=== PATIENT | female | born 1980 | race Caucasian/White ===

== ENCOUNTER 2020-05-04 09:39 | Outpatient (CLI) | payer OTHER, SELFPAY ==
--- NOTE | ~2020-05-04 | US_ITS ---
EXAMINATION: US OB <=14 wk fetus w TV DATE: 05/04/2020 10:59 INDICATION: Others specified related conditions, first trimester TECHNIQUE: Real-time pelvic transabdominal and transvaginal ultrasound was performed. COMPARISON: None. FINDINGS: The uterus measures 10.3 x 6.8 x 4.9 cm. There is an intrauterine gestational sac. A yolk sac is identified. The pole is not yet visualized, likely due to early gestation. The mean gest ational sac diameter measures 8 mm , which correlates with an estimated gestational age of 5 weeks an d 3 day(s) (+/-) 3 day(s). The right ovary measures 3.2 x 2.4 x 2.6 cm. The left ovary measures 2.2 x 2.0 x 1.1 cm. There is nor mal vascular flow in the ovaries. There is no free fluid in the pelvis. IMPRESSION: 1. Intrauterine gestational sac with an estimated gestational age of 5 weeks and 3 day(s) (+/-) 3 day (s) and an estimated delivery date of 01/01/2021 based on mean sac diameter. 2. pole not yet visualized, likely due to early . Reviewed, dictated and finalized at location B. IMPRESSION: 1. Intrauterine gestational sac with an estimated gestational age of 5 weeks an d 3 day(s) (+/-) 3 day(s) and an estimated delivery date of 01/01/2021 based on m tam sac diameter. 2. pole not yet visualized, likely due to early .
== END 2020-05-04 09:40 | disposition home or self-care (01) ==
PROVIDERS: PCP Family Medicine; Visit Provider Obstetrics & Gynecology
DX: Z34.90 Encounter for supervision of normal pregnancy, unspecified, unspecified trimester (principal); O26.899 Other specified pregnancy related conditions, unspecified trimester; Z3A.00 Weeks of gestation of pregnancy not specified
CPT/HCPCS: 36415; 76801; 76817; 84144; 84702

== ENCOUNTER 2020-05-09 10:09 | Outpatient (CLI) | payer OTHER, SELFPAY ==
--- NOTE | ~2020-05-09 | US_ITS ---
EXAMINATION: US OB <=14 wk fetus w TV DATE: 05/09/2020 11:22 INDICATION: survey TECHNIQUE: Real-time transabdominal and transvaginal obstetric ultrasound. FINDINGS: No prior studies for comparison. The uterus measures 11.2 x 6.8 x 5.1 cm. There is an intrauterine gestational sac, with pole id entified. The crown rump length measures 0.28 cm, which correlates with a estimated gestational age of 5 weeks 6 days. heart tones are identified measuring 91 bpm. 2.2 cm corpus luteal cyst of the right ovary. Left ovary is unremarkable. IMPRESSION: 1. SL IUP with an EGA of 5 weeks, 6 days (EDC by current ultrasound of 01/03/2021). Reviewed, dictated and finalized at location A. IMPRESSION: 1. SL IUP with an EGA of 5 weeks, 6 days (EDC by current ultrasound of ).
== END 2020-05-09 10:10 | disposition home or self-care (01) ==
PROVIDERS: PCP Family Medicine; Visit Provider Obstetrics & Gynecology
DX: Z34.90 Encounter for supervision of normal pregnancy, unspecified, unspecified trimester (principal)
CPT/HCPCS: 76801; 76817

== ENCOUNTER 2020-05-18 16:55 | Outpatient (CLI) | payer OTHER, SELFPAY ==
--- NOTE | ~2020-05-18 | US_ITS ---
EXAMINATION: US OB <=14 wk fetus w TV DATE: 05/18/2020 17:39 INDICATION: Threatened , first trimester TECHNIQUE: Real-time pelvic transabdominal and transvaginal ultrasound was performed. COMPARISON: 05/09/2020 FINDINGS: The uterus measures 10.3 x 5.0 x 7.1 cm. There is an intrauterine gestational sac. A yolk sac is no longer identified. There is a questionable 5 mm pole. No associated cardiac act ivity is identified. The ovaries are not visualized however no adnexal abnormality is seen. There is no free fluid in the pelvis. IMPRESSION: 1. Possible pole without detectable heart tones and interval involution of a yolk sac, mccormack spicious for failure. Reviewed, dictated and finalized at location A. IMPRESSION: 1. Possible pole without detectable heart tones and interval involu tion of a yolk sac, suspicious for failure.
== END 2020-05-18 16:56 | disposition home or self-care (01) ==
PROVIDERS: PCP Family Medicine; Visit Provider Obstetrics & Gynecology
DX: O20.0 Threatened abortion (principal); Z3A.00 Weeks of gestation of pregnancy not specified
CPT/HCPCS: 76801; 76817

== ENCOUNTER 2020-06-30 09:22 | Outpatient (CLI) | payer OTHER, SELFPAY ==
--- NOTE | ~2020-06-30 | XR_ITS ---
EXAMINATION: XR hysterosalpingogram INDICATION: Recurrent loss TECHNIQUE: Hysterosalpingogram was performed by Dr. Fadi Almanza MD with fluoroscopic guidance. I was present to obtain fluoroscopic images. Fluoroscopy exposure time was 1.4 minutes. The DAP for this procedure was 6.546 Gycm2. FINDINGS: Sandblaster Paint Sprayer image demonstrates an unremarkable pelvis. Fluoroscopic images demonstrate a normal appearing endometrial cavity which has been cannulated. Upon injection of contrast, both fallopian t ubes opacify and are normal in appearance. There is free spillage bilaterally. Uterus is without nikole dence of synechia. A septate uterus is questioned. IMPRESSION: 1. Patent fallopian tubes. 2. Possible septate uterus. Reviewed, dictated and finalized at location A. 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
[2020-06-30 10:35] LABS: Beta HCG Quantitative < 2.39 mIU/ML
== END 2020-06-30 09:23 | disposition home or self-care (01) ==
PROVIDERS: PCP Family Medicine; Visit Provider Obstetrics & Gynecology
DX: N96 Recurrent pregnancy loss (principal)
CPT/HCPCS: 36415; 58340; 74740; 84702; Q9966

== ENCOUNTER 2020-08-03 06:57 | Outpatient (NON) | payer OTHER, SELFPAY ==
[2020-08-03 18:51] LABS: SARS-CoV-2 RNA PCR Negative
== END 2020-08-03 06:58 ==
LOC: ANHCOVIDDT 07:00
PROVIDERS: Physician Assistant; PCP Family Medicine; Visit Provider Family Medicine
DX: R06.02 Shortness of breath (principal); Z20.828 Contact with and (suspected) exposure to other viral communicable diseases
CPT/HCPCS: 87635; C9803; U0003

== ENCOUNTER 2021-04-15 12:21 | Emergency (ER) | payer OTHER, SELFPAY ==
--- NOTE | 2021-04-15 12:23 | ED.SKABFB ---
HPI - Skin/Abscess/Foreign Bdy General Chief complaint: Skin/Abscess/Foreign Body Stated complaint: rash Time Seen by Provider: 04/15/21 12:23 Source: patient and RN notes reviewed History of Present Illness HPI narrative: Patient is a 40-year-old female who presents the urgent care with complaints of a itchy rash to bilateral lower legs and right forearm. Patient states is been there for approximately 2 weeks and she has not used anything [id number] for her itching. Patient states that she believes she is 6 weeks and was seen for an ultrasound today due to spotting. Patient states she was not taking anything and was not prescribed anything for the rash considering her . Patient states that this would be her third miscarriage if she is in fact miscarrying at this time. Patient is tearful and anxious due to her previous appointment prior to urgent care. Patient states that the rash started after she was outside a lot and at the [place]. States that no one else in the home has the rash. No other acute complaints. Patient aware of the plan of care Some parts of this dictation were generated by voice recognition software and may contain typographical and/or grammatical inaccuracies. Related Data Allergies Allergy/AdvReac Type Severity Reaction Status Date / Time neomycin Allergy Mild RASH Verified 02/04/21 08:01 bacitracin Allergy Unknown Rash Verified 02/04/21 08:01 polymyxin B Allergy Unknown Rash Verified 02/04/21 08:01 Review of Systems Review of Systems: CONSTITUTIONAL: Denies fever, chills, or sweats. EYES: Denies visual changes, redness, or discharge. ENT: Denies rhinorrhea, congestion, sore throat, or otalgia. CARDIOVASCULAR: Denies chest pain, palpitations, or edema. RESPIRATORY: Denies cough or dyspnea. GASTROINTESTINAL: Denies abdominal pain, nausea, vomiting, or diarrhea. GENITOURINARY: Denies dysuria or hematuria. SKIN: Reports of an itchy rash to bilateral lower legs and right forearm MUSCULOSKELETAL: Denies back pain, joint pain, or myalgia. NEUROLOGIC: Denies headache, numbness, or weakness. All other systems reviewed are negative, except as documented in HPI. [facility] Past Medical History Medical History (Updated 04/15/21 @ 12:43 by CARLI Bailey) Attention-deficit hyperactivity disorder, predominantly inattentive type Surgical History Surgical History [place] teeth extracted Family History Family History Mother Diabetes mellitus Social History Social History (Updated 02/04/21 @ 08:02 by Alice Waggoner CMA) Years smoked: 8 Smoking status: Former smoker Tobacco type: cigarettes Second hand tobacco smoke exposure: No Smoking end date: 08/27/04 Alcohol intake: never Substance use: never Substance use type: does not use Gender identity (if verbalized by the patient): Female Comments At the time of my signature, I reviewed and agree with the nursing past medical, surgical, social, and family history. There is no relevant family history pertinent to the patient complaint. Exam Narrative: GENERAL: This is a well-nourished, well-developed patient, tearful HEAD: normocephalic, atraumatic. EYES: PERRL. Sclera clear/white. Vision is grossly intact. EARS: External ears normal NOSE: External nose normal with no obvious nasal discharge, nares without redness, no rhinorrhea. THROAT: Mucous membranes moist NECK: Neck supple CARDIOVASCULAR: Regular rate and rhythm without murmurs, gallops, or rubs. SKIN: NEURO: awake, alert, and oriented to person, place and time. There were no obvious focal neurologic abnormalities. EXTREMITIES: No clubbing, cyanosis, or edema. Course Vital Signs Vital signs: Vital Signs Temperature 97.9 F 04/15/21 12:29 Pulse Rate 90 04/15/21 12:29 Respiratory Rate 16 04/15/21 12:29 Blood Pressure 121/87 04/15/21 12:29
[2021-04-15 12:29] VITALS: BP 121/87; PULSE 90; RESP 16; TEMP 36.6; O2SAT 98
== END 2021-04-15 12:49 | disposition home or self-care (01) ==
PROVIDERS: Emergency Provider Nurse Practitioner Family; PCP Family Medicine
DX: B88.0 Other acariasis (principal); Z87.891 Personal history of nicotine dependence; F90.0 Attention-deficit hyperactivity disorder, predominantly inattentive type
CPT/HCPCS: 99211; G0463

== ENCOUNTER 2021-04-15 14:39 | Emergency (ER) | payer OTHER, SELFPAY ==
[2021-04-15 15:12] VITALS: BP 119/82; PULSE 99; RESP 16; TEMP 36.5; O2SAT 96
[2021-04-15 15:38] LABS: Basophils Absolute Auto 0.1 K/mm3 (0.0-0.1); Basophils Percent Auto 0.5 % (0.2-1.2); Eosinophils Absolute Auto 0.2 K/mm3 (0-0.3); Eosinophils Percent Auto 1.6 % (0-4.4); Hematocrit 44.7 % (37.0-47.0); Hemoglobin 14.5 g/dL (12.0-15.0); Immature Granulocyte Absolute 0.05 K/mm3 (0.00-0.031); Immature Granulocyte Percent A 0.4 % (0-0.5); Lymphocytes Absolute Auto 2.69 K/mm3 (0.9-3.2); Lymphocytes Percent Auto 21.5 % (18.3-44.2); Mean Corpuscular HGB Conc 32.4 g/dl (32-36); Mean Corpuscular Hemoglobin 29.5 pg (26-34); Mean Corpuscular Volume 90.9 fl (80-100); Mean Platelet Volume 8.5 fl (7.4-10.4); Monocytes Absolute Auto 1.1 K/mm3 (0.1-0.6); Monocytes Percent Auto 8.6 % (2.6-8.5); Neutrophils Absolute Auto 8.4 K/mm3 (1.3-6.7); Neutrophils Percent Auto 67.4 % (45.5-73.1); Platelet Count Result 407 k/mm3 (150-375); Red Blood Count 4.92 M/mm3 (4.2-5.4); Red Cell Distribution Width 13.6 % (11.5-14.5); White Blood Count 12.5 K/mm3 (4.5-10.0)
[2021-04-15 18:00] VITALS: BP 144/77; PULSE 77; RESP 20; O2SAT 100
--- NOTE | 2021-04-15 18:49 | ED.PREGNANCY ---
HPI - General Chief complaint: Vaginal Bleeding Stated complaint: vaginal bleeding/ lmp 02/24 Time Seen by Provider: 04/15/21 18:02 Source: patient Mode of arrival: ambulatory Limitations: no limitations History of Present Illness HPI Narrative: This is a 40-year-old G3, P0, about 7 weeks by LMP, that presents to the emergency department for vaginal bleeding. Reports this has been ongoing for the last 2 days. It worsened today with worsening pelvic cramping. She did see her high-risk doctor this morning and had a ultrasound that showed an intrauterine . She was measuring about 5 weeks, there was no heart tones. Denies fevers. Related Data Home Medications Medication Instructions Recorded Confirmed No Home Medications 04/15/21 04/15/21 Allergies Allergy/AdvReac Type Severity Reaction Status Date / Time neomycin Allergy Mild RASH Verified 04/15/21 17:57 bacitracin Allergy Unknown Rash Verified 04/15/21 17:57 polymyxin B Allergy Unknown Rash Verified 04/15/21 17:57 Review of Systems Review of Systems: CONSTITUTIONAL: Denies fever GASTROINTESTINAL: Reports pelvic cramping GENITOURINARY: Reports vaginal bleeding All systems reviewed & are unremarkable except as noted in HPI and below PMFSH Past Medical History Medical History (Updated 04/15/21 @ 18:54 by Melinda Taylor PA-C) Attention-deficit hyperactivity disorder, predominantly inattentive type Surgical History Surgical History [place] teeth extracted Family History Family History Mother Diabetes mellitus Social History Social History (Updated 02/04/21 @ 08:02 by Alice Waggoner CMA) Years smoked: 8 Smoking status: Former smoker Tobacco type: cigarettes Second hand tobacco smoke exposure: No Smoking end date: 08/27/04 Alcohol intake: never Substance use: never Substance use type: does not use Gender identity (if verbalized by the patient): Female Exam Narrative: GENERAL: Well-appearing, well-nourished, and in no acute distress. HEAD: Normocephalic, atraumatic. EYES: EOMI. CHEST: Clear to auscultation. No respiratory distress. No wheezes rales or rhonchi HEART: Regular rate and rhythm. No murmur heard. Normal peripheral pulses. ABDOMEN: Soft, nontender, nondistended, normal active bowel sounds. EXTREMITIES: Normal range of motion. No edema. SKIN: Warm, dry, no rash. NEURO: No focal deficits. Alert and oriented x3. PSYCH: Normal mood and affect PELVIC: Normal external genitalia. Small to moderate amount of dark red blood in the vaginal vault Course Consultations Consultation #1: Spoke with Dr. Almanza about patient and work-up. Patient will be given prescription for quantitative beta-hCG in 48 hours and is to follow-up in clinic. Date: 04/15/21 Time: 18:54 Vital Signs Vital signs: Vital Signs Temperature 97.7 F 04/15/21 15:12 Pulse Rate 99 04/15/21 15:12 Respiratory Rate 16 04/15/21 15:12 Blood Pressure 119/82 04/15/21 15:12 Pulse Oximetry 96 04/15/21 15:12 Temperature 97.7 F 04/15/21 15:12 Pulse Rate 77 04/15/21 18:00 Respiratory Rate 20 04/15/21 18:00 Blood Pressure 144/77 H 04/15/21 18:00 Pulse Oximetry 100 04/15/21 18:00 MDM - OB/Uterine Contractions MDM Narrative Medical decision making narrative: Patient presents to the emergency department for vaginal bleeding. 7 weeks by LMP. She did have an ultrasound today which showed an intrauterine with her high risk doctor. Apparently she was measuring 5 weeks, there was no heart tones. She does have a small to moderate amount of dark red blood in the vaginal vault. Her quantitative beta-hCG is 296. Patient is O+. Spoke with Dr. Almanza about patient and work-up. Patient will be given prescription for quantitative beta-hCG in 48 hours and is to follow-up in clinic. Patient is
[2021-04-15] MEDS: ACETAMINOPHEN 500 MG TABLET 1000 MG PO (19:04)
[2021-04-15 19:12] VITALS: BP 142/72; PULSE 65; RESP 16; O2SAT 96
[2021-04-15 19:16] VITALS: TEMP 36.5
== END 2021-04-15 19:17 | disposition home or self-care (01) ==
LOC: ANHED 19:10
PROVIDERS: Emergency Medicine; Emergency Provider Emergency Medicine; PCP Family Medicine
DX: O20.0 Threatened abortion (principal); Z87.891 Personal history of nicotine dependence; Z3A.01 Less than 8 weeks gestation of pregnancy
CPT/HCPCS: 36415; 84702; 85025; 85461; 99211; 99284; A9270; G0463

== ENCOUNTER 2021-04-18 07:00 | Outpatient (CLI) | payer OTHER, SELFPAY ==
[2021-04-18 08:07] LABS: Beta HCG Quantitative 21.73 mIU/ML
== END 2021-04-18 07:01 | disposition home or self-care (01) ==
PROVIDERS: PCP Family Medicine; Referring Provider Obstetrics & Gynecology; Visit Provider Physician Assistant
DX: O20.0 Threatened abortion (principal); Z3A.00 Weeks of gestation of pregnancy not specified
CPT/HCPCS: 36415; 84702

== ENCOUNTER → 2022-05-16 09:06 | Outpatient (CLI) | payer OTHER, SELFPAY ==
--- NOTE | ~2022-05-16 | XR_ITS ---
XR lumbar spine 2-3V DATE: 05/16/2022 09:20 INDICATION: Low back pain radiating down both legs for 2 months TECHNIQUE: AP, lateral, coned lateral lumbosacral views COMPARISON: None FINDINGS: There is mild degenerative disc disease at L1-2 and L2-3. No fracture or bone destruction or spondylolisthesis. The lumbar pedicles are intact. The sacrum join ts appear normal. IMPRESSION: Mild degenerative disc disease at L1-2 and L2-3 Reviewed, dictated and finalized at location B.
== END ==
PROVIDERS: PCP Family Medicine; Visit Provider Physician Assistant
DX: M51.36 Other intervertebral disc degeneration, lumbar region (principal)
CPT/HCPCS: 72100

== ENCOUNTER → 2022-06-27 10:03 | Outpatient (CLI) | payer OTHER, SELFPAY ==
--- NOTE | ~2022-06-27 | XR_ITS ---
EXAMINATION: XR chest 2V Exam Date/Time: 06/27/2022 10:32 CDT HISTORY: DIZZINESS SOB WHEEZING FOR 2 MONTHS Comparison: None available. RESULT: Lines, tubes, and devices: None. Lungs and pleura: Clear. Cardiomediastinal silhouette: Unremarkable. Other: No acute osseous or upper abdominal finding. IMPRESSION: No acute cardiopulmonary process. Reviewed, dictated and finalized at location K.
== END ==
PROVIDERS: PCP Family Medicine; Visit Provider Physician Assistant
DX: R06.02 Shortness of breath (principal)
CPT/HCPCS: 71046

== ENCOUNTER 2022-10-09 08:31 | Outpatient (CLI) | payer OTHER, SELFPAY ==
--- NOTE | ~2022-10-09 | NM_ITS ---
EXAMINATION: NM quinn stress w perfusion DATE: 10/09/2022 10:54 INDICATION: Other forms of dyspnea. TECHNIQUE: Rest images were obtained following intravenous administration of 11 mCi Tc99m tetrofosmin (Myoview). The patient was infused intravenously with Lexiscan (regadenoson). Then, 35 mCi Tc99m tet rofosmin (Myoview) was administered intravenously, and supine and prone stress images were obtained. Data was reconstructed into short axis and horizontal and vertical long axis SPECT images. Gated SPEC T images were also obtained. COMPARISON: None. FINDINGS: There is no definite reversible or fixed perfusion abnormality to suggest ischemia or infar ction. There is no segmental wall motion abnormality. Left ventricular ejection fraction measures > 70%. IMPRESSION: 1. No definite ischemia or infarct. 2. Normal left ventricular ejection fraction measuring >70%. Reviewed, dictated and finalized at location A. 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
--- NOTE | 2022-10-09 08:50 | EST_ITS ---
Patient Info Name: Kasie Chamorro Age: 42 years : 1980 Gender: Female Ht: 62 in Wt: 240 lbs BSA: 2.25 m2 HR: 91 bpm BP: 102 / 80 mmHg Heart Rhythm: Sinus Rhythm Exam Date: 10/09/2022 9:17 AM Exam Location: [facility] ([facility] Stress Patient Status: Outpatient Admit Date: 10/09/2022 Staff Ordering Physician: Mary Rudd PA-C Attending Provider: Mary Rudd PA-C Exercise Technologist: Chata Hughes CT Exercise Physician: Ishmael Ferris DO Exam Type: CA stress quinn w NM Study Info Indications R06.09 - Other forms of dyspnea A regadenoson stress test was performed. Summary 1. 1. Negative lexiscan stress test for ischemic ST changes by ECG criteria. 2. 2. Stable hemodynamics throughout the test. 3. 3. Nuclear scan to follow and will be reported separately. Please correlate with it. 4. 4. Patient informed of the above results. Protocol: Lexiscan Stress ECG Details Stage: REST Duration (min): 3 min : 45 sec HR (bpm): 91 SBP (mmHg): 102 DBP (mmHg): 80 Stage: REST Duration (min): 13 min : 51 sec HR (bpm): 94 SBP (mmHg): 102 DBP (mmHg): 80 Stage: STAGE 1 Duration (min): 1 min : 0 sec HR (bpm): 115 SBP (mmHg): 121 DBP (mmHg): 51 Stage: RECOVERY Duration (min): 1 min : 0 sec HR (bpm): 118 SBP (mmHg): 121 DBP (mmHg): 51 Stage: RECOVERY Duration (min): 2 min : 0 sec HR (bpm): 115 SBP (mmHg): 121 DBP (mmHg): 51 Stage: RECOVERY Duration (min): 2 min : 50 sec HR (bpm): 111 SBP (mmHg): 112 DBP (mmHg): 58 Rest HR: 94 bpm Peak HR: 119 bpm Rest Sys BP: 102 mmHg Peak Sys BP: 121 mmHg Max Pred HR: 178 bpm % Max Pred HR: 67 % Target HR: 151 bpm Max RPP: 14,399 bpm*mmHg Termination Reason: Completed protocol Cardiac Symptoms: Shortness of breath Total Time: 1 min : 0 sec Rest [place] BP: 80 mmHg Peak [place] BP: 51 mmHg Total Dose: 0.4 mg Resting ECG Sinus rhythm. Stress ECG No ST changes. Arrhythmias None. Report Signatures
== END 2022-10-09 08:32 | disposition home or self-care (01) ==
PROVIDERS: PCP Family Medicine; Visit Provider Physician Assistant
DX: R06.09 Other forms of dyspnea (principal); E66.9 Obesity, unspecified
CPT/HCPCS: 78452; 93017; A9502; J2785

== ENCOUNTER 2022-11-13 09:28 | Outpatient (CLI) | payer OTHER, SELFPAY ==
--- NOTE | ~2022-11-13 | US_ITS ---
Limited Abdominal Sonogram: Real-time sonographic imaging of the right upper quadrant was performed. Clinical History: Abnormal liver enzymes Findings: The liver appears mildly echogenic, with no evidence of mass lesion or bile duct dilatatio n. Main portal vein demonstrates normal direction of flow. The gallbladder is well distended, and mraia g ears normal with no evidence of gallstone or wall thickening. The common bile duct measures 4 mm. Th e visualized pancreas, aorta, and IVC are unremarkable. Impression: Probable fatty infiltration of liver. Reviewed, dictated and finalized at location M. Impression: Probable fatty infiltration of liver.
--- NOTE | 2022-11-13 17:18 | WPDPFTINT ---
PFT Procedure Performed PFT Procedure Performed Spirometry with Pre/Post Bronchodilator Plethysmography (Lung Vol) Diffusing Cap (DLCO) Flow Vol Loop PFT Interpretation This is a pulmonary function test with pre and post-bronchodilator spirometry, plethysmography and diffusing capacity. The test was performed and results interpreted in accordance with the 2019 and 2005 ATS/ERS Task Force guidelines respectively using the Global Lung Function Initiative-2012 reference equations. Patient demonstrated good effort and cooperation. Reproducibility criteria were met. The quality of the pre bronchodilator spirometry maneuver was Grade A and post bronchodilator spirometry maneuver was Grade A. Findings: Spirometry: The contour the inspiratory and expiratory flow tracing are normal. The pre bronchodilator FVC is 2.65 L, 79% predicted. The pre bronchodilator FEV1 is 2.17 L, 79% predicted. The pre bronchodilator FEV1: FVC ratio was 82%. The post bronchodilator FVC is 2.70 L, representing a 2% increase. The post bronchodilator FEV1 is 2.24 L, representing a 3% increase. The post bronchodilator FEV1: FVC ratio was 83%. Plethysmography: The total lung capacity is 3.77 L, 80% predicted. The functional residual capacity is 1.34 L, 52% predicted. The residual volume is 1.02 L, 68% predicted. Diffusion capacity: The diffusing capacity unadjusted for hemoglobin and carboxyhemoglobin is 17.5, 77% predicted. The diffusing capacity adjusted for alveolar volume is 5.48, 114% predicted. Impression: The spirometry is normal without evidence of an obstructive abnormality. There is no significant improvement after inhaling a single dose of albuterol. The total lung capacity and Residual volume are normal with a decreased functional residual capacity. This is an abnormal but nonspecific lung volume pattern. The diffusing capacity is normal. There are no prior studies for comparison
== END 2022-11-13 09:29 | disposition home or self-care (01) ==
PROVIDERS: PCP Family Medicine; Visit Provider Physician Assistant
DX: R06.09 Other forms of dyspnea (principal); R74.01 Elevation of levels of liver transaminase levels; R74.8 Abnormal levels of other serum enzymes
CPT/HCPCS: 76705; 94060; 94726; 94729

== ENCOUNTER 2024-03-19 08:45 | Outpatient (CLI) | payer OTHER, SELFPAY ==
--- NOTE | ~2024-03-19 | US_ITS ---
US abdomen limited INDICATION: Elevated liver function tests PROCEDURE: Realtime right upper abdominal ultrasound. COMPARISON: No prior studies for comparison. FINDINGS: The pancreas is normal without focal mass or pancreatic ductal dilation. Liver echotexture is increased, consistent with fatty infiltration. There is normal directional flow in the portal ve in. The gallbladder is normal without stones, gallbladder wall thickening or pericholecystic fluid. Comm on bile duct measures 3 mm. No sonographic Mcclendon's sign. IMPRESSION: 1: Fatty infiltration of the liver. Reviewed, dictated and finalized at location B.
== END 2024-03-19 08:46 | disposition home or self-care (01) ==
LOC: CHSIMG 08:46
PROVIDERS: PCP Family Medicine; Visit Provider Physician Assistant
DX: R79.89 Other specified abnormal findings of blood chemistry (principal); K76.0 Fatty (change of) liver, not elsewhere classified
CPT/HCPCS: 76705

== ENCOUNTER 2024-06-13 07:57 | Outpatient (CLI) | payer OTHER, SELFPAY ==
[2024-06-13 08:24] LABS: Hemoglobin A1C 5.2 % (<5.7)
[2024-06-13 09:07] LABS: Thyroid Stimulating Hormone 1.15 uIU/mL (0.36-3.74)
[2024-06-15 02:18] LABS: Alpha-1-Antitrypsin, QN 176 mg/dL (83-199)
[2024-06-15 02:28] LABS: LH 8.8 mIU/mL; Progesterone <0.5 ng/mL
[2024-06-16 13:24] LABS: Insulin Level Total 25.3 uIU/mL
== END 2024-06-13 07:58 | disposition home or self-care (01) ==
LOC: CHSLAB 07:59
PROVIDERS: Nurse Practitioner Family; PCP Physician Assistant; Visit Provider Obstetrics & Gynecology
DX: N92.6 Irregular menstruation, unspecified (principal)
CPT/HCPCS: 36415; 82103; 83001; 83002; 83036; 83525; 84144; 84443

== ENCOUNTER 2024-11-05 08:04 | Outpatient (CLI) | payer OTHER, SELFPAY ==
--- NOTE | ~2024-11-05 | US_ITS ---
EXAMINATION: US pelvic complete w TV DATE: 11/05/2024 08:35 INDICATION: Abnormal uterine and vaginal bleeding, unspecified. TECHNIQUE: Multiple transabdominal and transvaginal sonographic images of the pelvis were obtained. COMPARISON: Ultrasound 07/01/2024 FINDINGS: TRANSABDOMINAL ULTRASOUND: The uterus measures 8.6 x 5.8 x 4.6 cm. There is no free fluid in the pelvis. TRANSVAGINAL ULTRASOUND: The endometrial complex measures 2.2 cm in thickness. There is a nabothian cyst in the cervix. The ri ght ovary measures 2.8 x 2.2 x 2.4 cm. The left ovary measures 3.3 x 2.4 x 2.0 cm. There is normal va scular flow in the ovaries. IMPRESSION: 1. Thickened endometrial complex, which may be seen with endometrial hyperplasia or polyp. Reviewed, dictated and finalized at location B. IMPRESSION: 1. Thickened endometrial complex, which may be seen with endometrial hyperplasi a or polyp.
--- OUTSIDE RECORDS SUMMARY | 2024-11-05 08:11 | XMS_ITS | Continuity of Care Document ---
Author Organization [facility] Address [address] [facility] [place] [address] Phone Care Team Providers Care Tonger Name Role Phone Carlos FULLER, Alexander Unavailable Unavailable Allergies, Adverse Reactions, Alerts Substance Reaction Status Criticality polymyxin B Active No Information NEOMYCIN SULFATE Active No Informat ion BACITRACIN ZINC Active No Informati on bacitracin Active No Information Procedures Procedure Date PREV VISIT, EST, AGE 18-39 OFFICE/OUTPATIENT VISIT, EST OFFICE/OUTPATIENT VISIT, EST OFFICE/OUTPATIENT VISIT, EST OFFICE/OUTPATIENT VISIT, EST OFFICE/OUTPATIENT VISIT, EST PREV VISIT, NEW, AGE 18-39 OFFICE/OUTPATIENT VISIT, NEW Advance Directives Directive Yes / No Effective Date File Name No Information Encounters Encounter Description Practice Location Reason(s) For Visit Diagnoses Date Provider Providers Copied on Encounter PREV VISIT, EST, AGE 18-39 [facility], [address] [place], [address], tel:[phone] [facility] Physical (chief complaint) Routine medical examOther and unspecified hyperlipidemiaAtten tion deficit disorder of childhood without mention of hyperactivityOther sequelae of chronic liver diseaseDietary surveillance and counseling 5 Carlos Munoz. [address] [facility] [place] [address] , [place]. tel:[phone] Referring Provider: Alexander Gonzalez, [address] [facility], [place], [place], [address]. tel:[phone] [facility], [address] [place], [address], [place] tel:[phone] [facility] No Information 5 Carlos Munoz. [address], [place], [place], [address] , [place]. tel:[phone] OFFICE/OUTPA TIENT VISIT, [facility], [address], [place], [place], [address], [place] tel:[phone] [facility] fatty liver (chief complaint) ADD (chief complaint) obesity (chief complaint) Dietary surveillance and counselingAttention deficit disorder of childhood without mention of hyperactivityOther and unspecified hyperlipidemiaFatty liverObesity 5 Carlos Munoz. [address], [address], [place], [place], [address] , [place]. tel:[phone] Referring Provider: Fer Nguyen [address] [place], [address]. tel:[phone] OFFICE/OUTPA TIENT VISIT, [facility], [address], [place], [place], [address], [place] tel:[phone] [facility] LFT (chief complaint) HLP (chief complaint) sinus headache (chief complaint) Dietary surveillance and counselingOther and unspecified hyperlipidemiaUnspe cified chronic liver disease without mention of alcoholHeadacheAtte ntion deficit disorder of childhood without mention of hyperactivity 5 Carlos Munoz. [address], [address], [place], [place], [address] , [place]. tel:[phone] Referring Provider: Fer Nguyen [address], [place], [place], [address]. tel:[phone] OFFICE/OUTPA TIENT VISIT, [facility], [address], [place], [place], [address], [place] tel:[phone] [facility] HLP (chief complaint) LFT (chief complaint) headache (chief complaint) ADD (chief complaint) Dietary surveillance and counselingOther and unspecified hyperlipidemiaHeada cheUnspecified chronic liver disease without mention of alcoholAttention deficit disorder of childhood without mention of hyperactivity 4 Carlos Munoz. [address], [place], [place], [address] , [place]. [phone] OFFICE/OUTPA TIENT VISIT, EST [facility], [address], [place], [place], [address], [place] tel:[phone] [facility] Medicine liver disease (chief complaint) URI (chief complaint) leg tingling (chief complaint) HLP (chief complaint) Dietary surveillance and counselingUnspecifi ed chronic liver disease without mention of alcoholOther and unspecified hyperlipidemiaAtten tion deficit disorder of childhood without mention of hyperactivityDistur bance of skin sensation 4 Carlos Munoz. [address], [address], [place], [place], [address] , [place]. [phone] Referring Provider: Alexander Gonzalez, [address] [facility] [place], [address]. tel:[phone] PREV VISIT, NEW, AGE 18-39 [facility], [address] [place], [address], [place] tel:[phone] [facility] PHysical (chief complaint) Dietary surveillance and counselingRoutine Medical ExamAttention deficit disorder of childhood without mention of hyperactivityRoutin e Medical Exam 4 Carlos Kumar [address] [place], [address] , [place]. [phone] Family History Family Member Type Diagnosis Age At Onset Father Problem (finding) Alive and well Brother Problem (finding) Coronary artery disease 43 Mother Problem (finding) knee pain Mother Problem (finding) Diabetes mellitus Payers Payer name Insurance type Covered republican ID Authoriza tion(s) No Information Social History Type Description Quantity Date Captured Comments Alcohol Use Details beer Caffeine Use Details Unknown Tobacco Use Status Ex-cigarette smoker 015 Smoking Status Former smoker Smoking Tobacco Use Details Cigarette: No Details Available Cigarette: No Details Available Sex Female Vital Signs Date / Time: Height Weight BMI Pulse Rate Blood Pressure Temperature Respiratory Rate Body Surface Area Head Circumference BMI percentile Pulse Ox Inhaled Ox 12:57 PM 157.48 cm 188.00 lbs 34.3 9 kg/m eter (2) 99 /min 123/88 mm[Hg] 97.6 F 18 /min Chief Complaint And Reason For Visit From encounter dated '04/16/2015 11:30'. Physical (chief complaint). Description: Pt needs annual physical. Pt has ADD. Pt takes adderall and doing ok. Pt denies any abd pain or any appetite loss. Pt feels more energy and better focused with meds. Pt also has history of HLP and fatty liver. Pt could not tolerate phentemrine and unable to lose weight. Pt is not very active. Pt denies any other complaints Plan Of Treatment Date Type Action Status Goal Prescribed diet education co mpleted Referral Ordered: US EXAM, ABDOM, COMPLETE ordered History Of Present Illness Encounter Date Complaint History Of Prese nt Illness Physical Pt needs annual physical. Pt has ADD. Pt takes adderall and doing ok. Pt denies any abd pain or any appetite loss. Pt feels more energy and better focused with meds. Pt also has history of HLP and fatty liver. Pt could not tolerate phentemrine and unable to lose weight. Pt is not very active. Pt denies any other complaints obesity Additional infor mation: Pt has difficulty losing weight. Pt cut back on soda and she is dieting and exercising now. ADD Pt has ADD. Pt t akes adderall and doing ok fatty liver Pt has elevated LFT and fatty liver and gallbladder sludge. Pt denies any abd pain Instructions Date Instruction Additional Infor mation Prescribed Diet Educ ation/Lifestyle Education Regarding Diet Related to Dietary Surveillance and Counseling Prescribed Activity and Exercise Education Related to Dietary Surveillance and Counseling Prescribed diet education Relate d to Dietary surveillance and counseling Giving encouragement to exercise Related to Dietary surveillance and counseling Decrease caloric intake Related to Dietary surveillance counseling Physical activity counseling Rel ated to Dietary surveillance counseling Decrease caloric intake Related to Dietary surveillance counseling Dietary counseling Related to Di etary surveillance counseling Decrease caloric intake Related to Dietary surveillance counseling Dietary counseling Related to Di etary surveillance counseling Decrease caloric intake Related to Dietary surveillance counseling Dietary counseling Related to Di etary surveillance counseling Assessments Type Assessment Date assessment Routine medical exam assessment Other and unspecified hyperlipid emia assessment Attention deficit di sorder of childhood without mention of hyperactivity assessment Other sequelae of chronic liver disease assessment Dietary surveillance and claims counsel ing Mental Status Date Cognitive Assessment Orientation - Crane ed to time, place, person, situation.
--- OUTSIDE RECORDS SUMMARY | 2024-11-05 08:11 | XMS_ITS | Clinical Summary ---
Author Organization [facility] Address [address] [place] [address] Care Team Providers Care Websphere Consultant Name Role Phone None, Provider MD Primary Care Provider Unavaila ble Social History Tobacco Use Types Packs/Day Years Used Date Smoking Tobacco: Never Assessed Comments Unknown Sex and Gender Information Value Date Recorded Sex Assigned at Not on file Legal Sex Female 6:07 PM CDT Gender Identity Not on file Sexual Orientation Not on file Plan of Treatment Health Maintenance Due Date Last Done Comments Cervical Cancer Screening Pa p Smear (Age 30 to 64) Every 3 Years 1980 Annual Physical 1983 Hepatitis C 1998 DTaP, Tdap and Td Vaccines ( 1 - Tdap) 1999 Hepatitis B Vaccines (1 of 3 - 19+ 3-dose series) 1999 Cervical Cancer Screening Pa p with HPV Testing (Age 30 to 64) Every 5 Years 2010 Cervical Cancer Screening with HPV 2010 Mammogram Screening 2020 COVID-19 Vaccine (2023-2 5 season) 2024 Influenza Adult (#1) 2024 HPV Vaccines Aged Out No longer eligi ble based on patient's age to complete this topic Meningococcal B Vaccine Aged Out No l onger eligible based on patient's age to complete this topic Meningococcal Vaccine Aged Out No corine jorge eligible based on patient's age to complete this topic Pneumococcal Vaccine: Pediat rics (0 to 5 Years) and At-Risk Patients (6 to 64 Years) Aged Out No longer eligible b ased on patient's age to complete this topic RSV Immunizations Under 20 Months Aged Out No longer eligible based on patient's age to complete this topic Insurance [employer]NA [facility] Care Teams Websphere Consultant Relationship Specialty Start Date End Date None, Provider, PCP - General 04/27/20
--- OUTSIDE RECORDS SUMMARY | 2024-11-05 08:11 | XMS_ITS | Clinical Summary ---
Author Organization [facility] Address [address] [address] Care Team Providers Care Green Meat Packer Name Role Phone Andres Pate MD Primary Care Provider [phone] Medications Sertraline HCl (ZOLOFT PO) Take by mouth. Act traci Spacer/Aero Chamber Mouthpiece XX MISCIndications:B ronchitis with bronchospasm Use with albuterol inhaler. 1 Each 0 2 Active Active Problems No known active problems Social History Tobacco Use Types Packs/Day Years Used Date Smoking Tobacco: Passive Smo ke Exposure - Never Smoker Smokeless Tobacco: Never Alcohol Use Standard Drinks/Week Comments Not Asked 0 (1 standard drink = 0.6 oz pur e alcohol) Comments Unknown Sex and Gender Information Value Date Recorded Sex Assigned at Not on file Legal Sex Female 4:00 AM STAFF ANALYST Gender Identity Not on file Sexual Orientation Not on file Last Filed Vital Signs Vital Sign Reading Time Taken Comments Blood Pressure 128/90 10/23/2011 2:09 PM STAFF ANALYST Pulse 120 10/23/2011 2:09 PM STAFF ANALYST Temperature 36.6 C (97.8 F) 10/23/2011 2:09 PM STAFF ANALYST Respiratory Rate 16 10/23/2011 2:09 PM STAFF ANALYST Oxygen Saturation 96% 10/23/2011 2:09 PM STAFF ANALYST Inhaled Oxygen Concentration - - Weight 76.7 kg (169 lb) 10/23/2011 2:09 PM STAFF ANALYST Height 157.5 cm (5' 2 ) 10/23/2011 2:09 PM STAFF ANALYST Body Mass Index 30.91 10/23/2011 2:09 PM STAFF ANALYST Plan of Treatment Health Maintenance Due Date Last Done Comments Hepatitis C Virus (HCV) Screening 1980 TdaP Immunization 1980 Hepatitis B Immunization (1 of 3 - 19+ 3-dose series) 1999 Pap Smear 2001 Cervical Cancer Screening (CCS) 2010 HPV/Cotest 2010 Discussion re Starting/Frequ ency of Mammograms 2020 Influenza Immunization (#1) 2024 SARS-COV-2 Immunization ( - season) 2024 Respiratory Syncytial Virus (RSV) Immunization (Adult) (1 - 1-dose 75+ series) 2055 Meningococcal Immunization (ACWY) Aged Out No longer eligible based on patient's age to complete this topic Pneumococcal Immunization Combined Aged Out No longer eligible based on patient's age to complete this topic Rotavirus Immunization Aged Out No lo nger eligible based on patient's age to complete this topic Care Teams Green Meat Packer Relationship Specialty Start Date End Date Andres Pate MD [address] [place] [address] PCP - General Family Medicine 10/23/11
== END 2024-11-05 08:05 | disposition home or self-care (01) ==
LOC: CHSIMG 08:05
PROVIDERS: PCP Physician Assistant; Visit Provider Obstetrics & Gynecology
DX: N93.9 Abnormal uterine and vaginal bleeding, unspecified (principal); R93.89 Abnormal findings on diagnostic imaging of other specified body structures
CPT/HCPCS: 76830; 76856

== ENCOUNTER 2024-12-26 01:41 | Day surgery (SDC) | payer OTHER, SELFPAY ==
[2024-12-16 09:41] VITALS: BMI 32.2
--- NOTE | 2024-12-16 09:52 | PC.NURSE ---
Report to the Outpatient Waiting Room, entrance under the green pavilion located off [facility], at time _0700_ on date __12/26/24_. Planned Procedure Time: __0900__.? Time changes happen often and if your time is changed the preop area will call you the afternoon before. - You and your visitor will be asked to self-screen and do not enter if you have any COVID symptoms. Please call surgeon if you need to reschedule. - A mask is optional within the hospital at this time. Patients may have clear liquids (water, carbonated beverages, clear teas, apple juice) until 3 hours prior to surgery with a maximum of 20 ounces. - No food from midnight until time of surgery and no smoking, or chewing tobacco (or any form of nicotine). No chewing gum, candy or mints. - Infants may have breast milk until 4 hours before surgery, infant formula 6 hours prior to surgery. - Children will be allowed to drink immediately following surgery.? If applicable, please bring a bottle or sippy cup to assist with drinking. Juice, water, soda, and popsicles are readily available.? For infants on formula, please bring formula the day of surgery.? Pacifiers are allowed. Take only the following medications with a SIP of water on the morning of surgery: LORAZEPAM IF NEEDED DO NOT STOP ANY OF YOUR OTHER PRESCRIPTION MEDICATIONS PRIOR TO SURGERY EXCEPT THE FOLLOWING Hold all vitamins and supplements for 3 days per anesthesiologist. Medications to discontinue per physician __ZEPBOUND Date to take last dose 12/16/24 Please no make-up, nail citizen of [place], hairspray, perfume, deodorant, or body powder the day of surgery.? No jewelry (including any body piercings) or valuables the day of surgery, leave them at home.? Please take a shower or bath the night before, or the morning of, surgery with an antibacterial soap.? Wear comfortable, loose fitting clothing.? Children are encouraged to wear pajamas. - Jewelry must be removed prior to entering the operating room.? Rings and piercings that are not removed may be cut off. - The hospital will not accept responsibility for valuables.? - Please leave all valuables, including medications, at home the day of surgery. If you are going home after surgery, a licensed [facility] driver must drive you home.? - NO public transportation without another adult if you receive anesthesia. - We recommend that an adult stay with you for 24 hours following discharge. - We also recommend that you do not drive, make important decision, drink alcoholic beverages, or take any drugs that were not prescribed by your health care provider for at least 24 hours after your discharge time. For Pediatric surgeries, we recommend two adults accompany the child home. Follow any additional instructions given to you from your surgeon. Telephone instructions given to _PATIENT__and asked if any additional questions and then verbalized understanding. Patient advised to call surgeon office or pre surgery nurse liaison [phone] if any additional questions.
--- OUTSIDE RECORDS SUMMARY | 2024-12-26 01:44 | XMS_ITS | Continuity of Care Document ---
Author Organization [facility] Address [address] [address] Phone Care Team Providers Care Mechanical And Auto Body Car Checker Name Role Phone Carlos FULLER, Alexander Unavailable [...] on Encounter PREV VISIT, EST, AGE 18-39 [facility], [address] [place], [address], tel:[phone] [facility] Physical (chief complaint) Routine medical examOther and unspecified hyperlipidemiaAtten tion deficit disorder of childhood without mention of hyperactivityOther sequelae of chronic liver diseaseDietary surveillance and counseling 5 Carlos Munoz. [address], [facility] [place], [address] , [place]. tel:[phone] Referring Provider: Alexander Gonzalez, [address] [facility], [place], [place], [address]. tel:[phone] [facility], [address] [place], [address], [place] tel:[phone] [facility] No Information 5 Carlos Munoz. [address], [place], [place], [address] , [place]. tel:[phone] OFFICE/OUTPA TIENT VISIT, [facility], [address], [place], [place], [address], [place] tel:[phone] [facility] fatty liver (chief complaint) ADD (chief complaint) obesity (chief complaint) Dietary surveillance and counselingAttention deficit disorder of childhood without mention of hyperactivityOther and unspecified hyperlipidemiaFatty liverObesity 5 Carlos Munoz. [address], [place], [place], [address] , [place]. tel:[phone] Referring Provider: Fer Nguyen [address] [place], [address]. tel:[phone] OFFICE/OUTPA TIENT VISIT, [facility], [address], [place], [place], [address], [place] tel:[phone] [facility] LFT (chief complaint) HLP (chief complaint) sinus headache (chief complaint) Dietary surveillance and counselingOther and unspecified hyperlipidemiaUnspe cified chronic liver disease without mention of alcoholHeadacheAtte ntion deficit disorder of childhood without mention of hyperactivity 5 Carlos Munoz. [address], [place], [place], [address] , [place]. tel:[phone] Referring Provider: Fer Nguyen [address], [place], [place], [address]. tel:[phone] OFFICE/OUTPA TIENT VISIT, [facility], [address], [place], [place], [address], [place] tel:[phone] [facility] HLP (chief complaint) LFT (chief complaint) headache (chief complaint) ADD (chief complaint) Dietary surveillance and counselingOther and unspecified hyperlipidemiaHeada cheUnspecified chronic liver disease without mention of alcoholAttention deficit disorder of childhood without mention of hyperactivity 4 Carlos Munoz. [address], [place], [place], [address] , [place]. [phone] OFFICE/OUTPA TIENT VISIT, EST [facility], [address], [place], [place], [address], [place] tel:[phone] [facility] Medicine liver disease (chief complaint) URI (chief complaint) leg tingling (chief complaint) HLP (chief complaint) Dietary surveillance and counselingUnspecifi ed chronic liver disease without mention of alcoholOther and unspecified hyperlipidemiaAtten tion deficit disorder of childhood without mention of hyperactivityDistur bance of skin sensation 4 Carlos Munoz. [address], [place], [place], [address] , [place]. [phone] Referring Provider: Alexander Gonzalez, [address] [facility] [place], [address]. tel:[phone] PREV VISIT, NEW, AGE 18-39 [facility], [address] [place], [address], [place] tel:[phone] [facility] PHysical (chief complaint) Dietary surveillance and counselingRoutine Medical ExamAttention deficit disorder of childhood without mention of hyperactivityRoutin e Medical Exam 4 Carlos Kumar [address] [place], [address] , [place]. [phone] Family History Family Member Type Diagnosis Age At Onset Father Problem (finding) Alive and well Brother Problem (finding) Coronary artery disease 43 Mother Problem (finding) knee pain Mother Problem (finding) Diabetes mellitus Payers Payer name Insurance type Covered alliance party ID Authoriza tion(s) No Information Social History [...] chronic liver disease assessment Dietary surveillance and general counsel ing Mental Status Date Cognitive Assessment Orientation - Axson ed to time, place, person, situation.
--- OUTSIDE RECORDS SUMMARY | 2024-12-26 01:44 | XMS_ITS | Clinical Summary ---
Author Organization [facility] Address [address] [place] [place] [address] Care Team Providers Care Cisco Administrator Name Role Phone Andres Pate MD Primary Care Provider [phone] Medications Sertraline HCl (ZOLOFT PO) Take by [...] on file Legal Sex Female 4:00 AM INSTRUCTOR MILITARY SCIENCE Gender Identity Not on file Sexual Orientation Not on file Last Filed Vital Signs Vital Sign Reading Time Taken Comments Blood Pressure 128/90 10/23/2011 2:09 PM INSTRUCTOR MILITARY SCIENCE Pulse 120 10/23/2011 2:09 PM INSTRUCTOR MILITARY SCIENCE Temperature 36.6 C (97.8 F) 10/23/2011 2:09 PM INSTRUCTOR MILITARY SCIENCE Respiratory Rate 16 10/23/2011 2:09 PM INSTRUCTOR MILITARY SCIENCE Oxygen Saturation 96% 10/23/2011 2:09 PM INSTRUCTOR MILITARY SCIENCE Inhaled Oxygen Concentration - - Weight 76.7 kg (169 lb) 10/23/2011 2:09 PM INSTRUCTOR MILITARY SCIENCE Height 157.5 cm (5' 2 ) 10/23/2011 2:09 PM INSTRUCTOR MILITARY SCIENCE Body Mass Index 30.91 10/23/2011 2:09 PM INSTRUCTOR MILITARY SCIENCE Plan of Treatment Health Maintenance Due Date [...] age to complete this topic Care Teams Cisco Administrator Relationship Specialty Start Date End Date Andres Pate MD [address] [place] [address] PCP - General Family Medicine 10/23/11
--- OUTSIDE RECORDS SUMMARY | 2024-12-26 01:44 | XMS_ITS | Data Portability ---
Author Organization [facility], [address] [facility] ([place]) Address [address] 4[address] [place] [address] Care Team Providers Care Research And Development Researcher Name Role Phone JS BATEMAN Primary Care Provider Assessment Encounter Date Assessment Date Assessment LastModified by Organization Details LastModified Time 06/27/2024 06/27/2024 I discussed patient's test results with her and her significant other. I discussed that this appears to be a viral gastroenteritis. I recommended pushing fluids and a bland diet without milk products. Monitor for fever. If she develops fever, blood in her stools or increasing abdominal pain she needs to be reevaluated. She may return to urgent care as needed. She should see her PCP as needed. I recommend follow-up as regards the microhematuria. Patient verbalizes understanding of the instructions and has no further questions or concerns. [email or web address] Not available 07/01/2024 13:41:31 Plan of Treatment Reminders Order Date Submit Date Provider Last Modified By Organization Details Last Modified Time Details Appointments None recorded. Lab CBC w/ auto diff 2023 [facility] [place] [facility], [address] [place] [address], [id number], 17:10:39 CMP, serum or plasma 2023 [facility] [place] [facility], [address] [place] [address], [id number], 17:22:34 urinalysis , complete 2023 [facility] [place] [facility], [address] [place] [address], [id number], 4 17:22:49 amylase, serum or plasma 2023 024 [facility] [place] [facility], [address] [place] [address], [id number], 4 17:33:37 test, urine 2023 024 [facility] [place] [facility], [address] [place] [address], [id number], 20:30:30 Referral None recorded. Procedures None recorded. Surgeries None recorded. Imaging None recorded. Medication Orders None recorded. Patient TargetsNo targets recorded. Patient InstructionsNo instructions recorded. Reason for Referral None Reported. Results Created Date Observation Date Name Description Value Unit Range Abnormal Flag Note LastModifiedBy Organization Detail LastModifiedTime 06/27/20 24 06/27/2024 CBC w/ auto diff CBC with differential Not Available [facility] [address] [place] [address], [id number], 06/27/2024 17:10:39 06/27/20 24 06/27/2024 CBC w/ auto diff WBC 5.9 K/uL 3.8-11 .2 Not Available [facility] [address] [place] [address], [id number], 06/27/2024 17:10:39 06/27/20 24 06/27/2024 CBC w/ auto diff RBC 5.14 M/uL 3.92-5 .10 high Not Available [facility] [address] [place] [address], [id number], 06/27/2024 17:10:39 06/27/20 24 06/27/2024 CBC w/ auto diff HGB 12.9 g/dL 11.8-1 5.3 Not Available [facility] [address] [place] [address], [id number], 06/27/2024 17:10:39 06/27/20 24 06/27/2024 CBC w/ auto diff HCT 42.9 % 36.5-4 4.8 Not Available [facility] [address] [place] [address], [id number], 06/27/2024 17:10:39 06/27/20 24 06/27/2024 CBC w/ auto diff MCV 83.5 fL 80.0-9 9.0 Not Available [facility] [address] [place] [address], [id number], 06/27/2024 17:10:39 06/27/20 24 06/27/2024 CBC w/ auto diff MCH 25.1 pg 25.5-3 3.6 low Not Available [facility] [address] [place] [address], [id number], 06/27/2024 17:10:39 06/27/20 24 06/27/2024 CBC w/ auto diff MCHC 30.1 g/dL 32.0-3 6.0 low Not Available [facility] [address] [place] [address], [id number], 06/27/2024 17:10:39 06/27/20 24 06/27/2024 CBC w/ auto diff RDW-SD 46.1 fL 35.1 - 46.3 Not Available [facility] [address] [place] [address], 34515, 06/27/2024 17:10:39 06/27/20 24 06/27/2024 CBC w/ auto diff plt 475 K/uL 130-40 0 high Not Available [facility] [address] [place] [address], [id number], 06/27/2024 17:10:39 06/27/20 24 06/27/2024 CBC w/ auto diff MPV 9.0 fL 9.3-12 .8 low Not Available [facility] [address] [place] [address], 52288, 06/27/2024 17:10:39 06/27/20 24 06/27/2024 CBC w/ auto diff ivan% 53.0 % not estab Not Available [facility] [address] [place] [address], 50616, 06/27/2024 17:10:39 06/27/20 24 06/27/2024 CBC w/ auto diff lym% 29.0 % not estab Not Available [facility] [address] [place] [address], 51759, 06/27/2024 17:10:39 06/27/20 24 06/27/2024 CBC w/ auto diff mono% 15.2 % not estab Not Available [facility] [address] [place] [address], 44051, 06/27/2024 17:10:39 06/27/20 24 06/27/2024 CBC w/ auto diff eos% 2.6 % not estab Not Available [facility] [address] [place] [address], 49673, 06/27/2024 17:10:39 06/27/20 24 06/27/2024 CBC w/ auto diff baso% 0.2 % not estab Not Available [facility] [address] [place] [address], 39534, 06/27/2024 17:10:39 06/27/20 24 06/27/2024 CBC w/ auto diff abs ivan 3.1 K/uL 1.8-7. 5 Not Available [facility] [address] [place] [address], 98831, 06/27/2024 17:10:39 06/27/20 24 06/27/2024 CBC w/ auto diff abs lym 1.7 K/uL 1.1-3. 3 Not Available [facility] [address] [place] [address], 69775, 06/27/2024 17:10:39 06/27/20 24 06/27/2024 CBC w/ auto diff abs mono 0.9 K/uL 0.1-1. 0 Not Available [facility] [address] [place] [address], [id number], 06/27/2024 17:10:39 06/27/20 24 06/27/2024 CBC w/ auto diff abs eos 0.2 K/uL 0.0-0. 7 Not Available [facility] [address] [place] [address], [id number], 06/27/2024 17:10:39 06/27/20 24 06/27/2024 CBC w/ auto diff abs baso 0.0 K/uL 0.0-0. 2 Not Available [facility] [address] [place] [address], 75104, 06/27/2024 17:10:39 06/27/20 24 06/27/2024 CBC w/ auto diff imm. gran % 0.2 % 0-5 Not Available [facility] [address] [place] [address], [id number], 06/27/2024 17:10:39 06/27/20 24 06/27/2024 pregn li test, urine urine NEGATI VE negati ve (SENS ITIVI TY >99%) (SPEC IFICI TY >99%) Not Available [facility] [address] [place] [address], [id number], 06/27/2024 17:11:12 06/27/20 24 06/27/2024 CMP, serum or plasm a comp met panel Fasti ng statu s not avail able. Not Available [facility] [address] [place] [address], [id number], 06/27/2024 17:22:34 06/27/20 24 06/27/2024 CMP, serum or plasm a sodium 138 mmol/ L 128-14 5 Not Available [facility] [address] [place] [address], 98921, 06/27/2024 17:22:34 06/27/20 24 06/27/2024 CMP, serum or plasm a potassium 3.8 mmol/ L 3.5-5. 1 Not Available [facility] [address] [place] [address], 20585, 06/27/2024 17:22:34 06/27/20 24 06/27/2024 CMP, serum or plasm a CO2 24 mmol/ L 20-32 Not Available [facility] [address] [place] [address], 22254, 06/27/2024 17:22:34 06/27/20 24 06/27/2024 CMP, serum or plasm a chloride 106 mmol/ L 98-110 Not Available [facility] [address] [place] [address], [id number], 06/27/2024 17:22:34 06/27/20 24 06/27/2024 CMP, serum or plasm a glucose 118 mg/dL 70-100 high Not Available [facility] [address] [place] [address], 54771, 06/27/2024 17:22:34 06/27/20 24 06/27/2024 CMP, serum or plasm a calcium 9.1 mg/dL 8.4-10 .4 Not Available [facility] [address] [place] [address], 58023, 06/27/2024 17:22:34 06/27/20 24 06/27/2024 CMP, serum or plasm a BUN 10 mg/dL 7-21 Not Available [facility] [address] [place] [address], 47458, 06/27/2024 17:22:34 06/27/20 24 06/27/2024 CMP, serum or plasm a creatinine 0.7 mg/dL 0.7-1. 3 Not Available [facility] [address] [place] [address], 90404, 06/27/2024 17:22:34 06/27/20 24 06/27/2024 CMP, serum or plasm a alk phos 70 U/L 42-128 Not Available [facility] [address] [place] [address], 99790, 06/27/2024 17:22:34 06/27/20 24 06/27/2024 CMP, serum or plasm a ALT (SGPT) 58 U/L 10-47 high Not Available [facility] [address] [place] [address], 19306, 06/27/2024 17:22:34 06/27/20 24 06/27/2024 CMP, serum or plasm a AST (SGOT) 63 U/L 10-40 high Not Available [facility] [address] [place] [address], [id number], 06/27/2024 17:22:34 06/27/20 24 06/27/2024 CMP, serum or plasm a total bilirubin 0.8 mg/dL 0.2-1. 0 Not Available [facility] [address] [place] [address], 59948, 06/27/2024 17:22:34 06/27/20 24 06/27/2024 CMP, serum or plasm a albumin 3.9 g/dL 3.3-5. 5 Not Available [facility] [address] [place] [address], 95750, 06/27/2024 17:22:34 06/27/20 24 06/27/2024 CMP, serum or plasm a total protein 8.5 g/dL 6.4-8. 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 ) Not Available [facility] [address] [place] [address], [id number], 06/27/2024 17:22:34 06/27/20 24 06/27/2024 urina lysis , compl ete manual urinalysis Unabl e to perfo rm bilir ubin confi rmati on Dipst ick may be inacc urate due to the color of the urine Speci men rodney ntrat ed by centr ifuga tion. pH value s of 5 or 9 indic ates a value <=5 or >=9. Speci fic gravi ty value of 1.005 indic ates a value of <=1.0 05 Speci fic gravi ty value of 1.030 indic ates a value of >=1.0 30 LOW LEVEL S OF HEMOG LOBIN IN ABSEN CE OF HEMAT URIA MAY NOT BE CLINI DENICE KYLEI OMID T. Not Available [facility] [address] [place] [address], [id number], 06/27/2024 17:22:49 06/27/20 24 06/27/2024 urina lysis , compl ete color DKYEL Not Available [facility] [address] [place] [address], 59937, 06/27/2024 17:22:49 06/27/20 24 06/27/2024 urina lysis , compl ete appearance CLEAR Not Available [facility] [address] [place] [address], 43577, 06/27/2024 17:22:49 06/27/20 24 06/27/2024 urina lysis , compl ete sp gravity 1.030 1.005- 1.030 Not Available [facility] [address] [place] [address], 04469, 06/27/2024 17:22:49 06/27/20 24 06/27/2024 urina lysis , compl ete pH 6.0 5.0-7. 5 Not Available [facility] [address] [place] [address], 47458, 06/27/2024 17:22:49 06/27/20 24 06/27/2024 urina lysis , compl ete protein 1+ negati ve abnormal Not Available [facility] [address] [place] [address], 30918, 06/27/2024 17:22:49 06/27/20 24 06/27/2024 urina lysis , compl ete glucose NEG negati ve Not Available [facility] [address] [place] [address], 20691, 06/27/2024 17:22:49 06/27/20 24 06/27/2024 urina lysis , compl ete ketone NEG negati ve Not Available [facility] [address] [place] [address], 49040, 06/27/2024 17:22:49 06/27/20 24 06/27/2024 urina lysis , compl ete bilirub 2+ negati ve abnormal Not Available [facility] [address] [place] [address], 06763, 06/27/2024 17:22:49 06/27/20 24 06/27/2024 urina lysis , compl ete blood 1+ negati ve abnormal Not Available [facility] [address] [place] [address], 07723, 06/27/2024 17:22:49 06/27/20 24 06/27/2024 urina lysis , compl ete urobil 0.2 <=1.0 Not Available [facility] [address] [place] [address], 40905, 06/27/2024 17:22:49 06/27/20 24 06/27/2024 urina lysis , compl ete nitrite NEG negati ve Not Available [facility] [address] [place] [address], 42760, 06/27/2024 17:22:49 06/27/20 24 06/27/2024 urina lysis , compl ete leuk TRACE negati ve abnormal Not Available [facility] [address] [place] [address], 05106, 06/27/2024 17:22:49 06/27/20 24 06/27/2024 urina lysis , compl ete WBC 0-2 (0-5)/ hpf Not Available [facility] [address] [place] [address], 56666, 06/27/2024 17:22:49 06/27/20 24 06/27/2024 urina lysis , compl ete RBC 3-5 (0-2)/ hpf abnormal Not Available [facility] [address] [place] [address], 07954, 06/27/2024 17:22:49 06/27/20 24 06/27/2024 urina lysis , compl ete epith 6-10 0-10/h pf Not Available [facility] [address] [place] [address], 88556, 06/27/2024 17:22:49 06/27/20 24 06/27/2024 urina lysis , compl ete hyal cast 0-2 (0-2)/ lpf Not Available [facility] [address] [place] [address], 23564, 06/27/2024 17:22:49 06/27/20 24 06/27/2024 amyla se, serum or plasm a amylase 38 U/L 29-103 Not Available [facility] [address] [place] [address], 85087, 06/27/2024 17:33:37 Result Notes None recorded. Problems Name Problem SNOMED Code Status Onset Date Resolution Date Notes Provider Name and Address Organization Details Recorded Time Right lower quadrant pain 667354905 Active 2023 ANDREINA HALEY MD [address] [place] [address], [phone], [facility] 4 16:50:56 Viral gastroenteriti s 141048636 Active 2023 ANDREINA HALEY MD [address] [place] [address], [phone] [address], [facility] 4 13:40:24 Problem Notes None recorded. Medical Equipment None Reported. Allergies Allergen ID Allergen Name Allergen Category Reaction Reaction Severity Criticality Documentation Date Start Date Code Code System Note Provider Name and Address Organization Details Recorded Time 5131220 bacitraci n / neomycin / polymyxin B medicatio n Not available Not available Not available 06/27/2024 02318 9 RxNorm Alicia Toribio [facility] 4 16:24:44 1421233 Augmentin medicatio n vomiting mild low 06/27/2024 18416 2 RxNorm Alicia Toribio [facility] 4 16:25:02 Medications Name Sig Start Date Stop Date Status Note LastModified by Organization Details LastModified Time amoxicillin 500 mg capsule TAKE 1 CAPSULE BY MOUTH THREE TIMES A DAY FOR 5 DAYS active Not Available Not Available No t Available fluconazole 150 mg tablet 150 MG ORALLY ONCE A SINGLE DOSE active Not Available Not Available No t Available metronidazo le 500 mg tablet TAKE 1 TABLET BY MOUTH EVERY 12 HOURS FOR 10 DAYS 06/27 completed Not Available Not Available Not Available dextroamphe tamine-amph etamine 20 mg tablet TAKE 1 TABLET TWICE DAILY, ADMINISTE R DOSES 4-6 HOURS APART active Not Available Not Available No t Available ondansetron 4 mg disintegrat ing tablet 4 MG ORALLY EVERY 8 HOURS NEEDED FOR NAUSEA AND VOMITING active Not Available Not Available No t Available doxycycline hyclate 100 mg tablet TAKE 1 TABLET BY MOUTH EVERY 12 HOURS FOR 10 DAYS 06/27 completed Not Available Not Available Not Available ipratropium bromide 21 mcg (0.03 %) nasal spray 2 SPRAY INTRANASA LLY TWICE A DAY ADMINISTE R INTO EACH NOSTRIL active Not Available Not Available No t Available amoxicillin 875 mg-danuta patel clavulanate 125 mg tablet TAKE 1 TABLET BY MOUTH EVERY 12 HOURS FOR 3 DAYS 06/27 completed Not Available Not Available Not Available tobramycin 0.3 %-dexametha sone 0.1 % eye drops,suspe nsion INSTILL 1 DROP INTO LEFT EYE 3 TIMES A DAY DIRECTED FOR 7 DAYS active Not Available Not Available No t Available nitrofurant oin monohydrate /macrocryst als 100 mg capsule TAKE 1 CAPSULE BY MOUTH TWICE A DAY FOR 5 DAYS 06/27 completed Not Available Not Available Not Available Zepbound 10 mg/0.5 mL subcutaneou s pen injector INJECT 10MG SUBCUTANE OUSLY EVERY WEEK active Not Available Not Available No t Available Zepbound 5 mg/0.5 mL subcutaneou s pen injector INJECT 5MG SUBCUTANE OUSLY WEEKLY active Not Available Not Available No t Available Zepbound 2.5 mg/0.5 mL subcutaneou s pen injector INJECT 2.5MG SUBCUTANE OUSLY WEEKLY active Not Available Not Available No t Available Zepbound 7.5 mg/0.5 mL subcutaneou s pen injector INJECT 7.5MG SUBCUTANE OUSLY WEEKLY active Not Available Not Available No t Available Vitals Date Recorded Body temperature Heart rate Respiratory rate Oxygen saturation Oxygen saturation in Arterial blood by Pulse oximetry Systolic blood pressure Diastolic blood pressure Provider Name and Address Organization Details Last Updated DateTime 4 98.1 [degF] 85 /min 18 /min 98 % 98 % 110 mm[Hg] 76 mm[Hg] [facility] 4 16:24:17 Social History None recorded. Functional Status None recorded. Mental Status None recorded. Family History Nothing Reported. Medical History No medical history recorded. Gynecological HistoryNo gynecological history recorded. Obstetrics History GPAL:G 0 P 0 0 0 0 Past Encounters Encounter ID Performer Location Encounter Start Date Encounter Closed Date Diagnosis/Indication Diagnosis SNOMED-CT Code Diagnosis ICD10 Code Diagnosis Note [id number] ANDREINA HALEY MD [facility] [address] [place] [address] [place] [phone] 06/27/2024 16:14:54 06/27/2024 17:47:13 Right lower quadrant pain 191706386 R10.31 Viral gastroenteritis 11 4906046 A08.4 Health Concerns Section Related Observation LastModified by Organization Detai ls LastModified Time None Recorded Concern Status LastModified by Organization Details LastModified Time None Recorded Advance Directives Directive None Recorded Payers Encounter Date Sequence Insurance Name Policy Number Policy Walters Covered Member ID Walters Member ID Guarantor Name 06/27/2024 1 [employer] - CHOICE (POS II) [id number] Kasie Thee Pedro Pablo [id number] Kasie Chamorro Notes Date Note Type Note Provider Name and Address Organization Details Recorded Time 06/27/2024 text/html This is a pleasa nt 44-year-old patient in today, accompanied by her significant other, with complaints of vomiting and diarrhea for the last 3 days. Patient states she last vomited on Sunday, June 25. She continues to have diarrhea and had 4 episodes today. Patient denies any blood or mucus in the diarrhea. No fever, chills, or sweats at home. She has some mild right lower quadrant abdominal pain. No dysuria, urgency, frequency or hematuria. Patient denies history of abdominal surgeries. She did travel to [place] for work this week. She denies any unusual food or recent antibiotics. No ill contacts. No history of colitis. She is prediabetic. She has been on Zepbound for weight loss. Her last dosage increased was in mid March. She did have some Zofran on hand and took that yesterday. Medicines and allergies are reviewed. Patient's last normal menstrual period was June 05, 2024. ANDREINA HALEY MD [address] [facility], [place], [address], [place] [facility] 07/01/2024 13:41:52 OBGyn Episode No OBEpisode recorded.
--- OUTSIDE RECORDS SUMMARY | 2024-12-26 01:44 | XMS_ITS | Clinical Summary ---
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 Name Role Phone None, Provider MD Primary [...] 2020 COVID-19 Vaccine (2023-2 5 season) 2024 HPV Vaccines Aged Out No longer eligi ble based on patient's age to complete this topic Meningococcal B Vaccine Aged Out No l onger eligible based on patient's age to complete this topic Meningococcal Vaccine Aged Out No corine jorge eligible based on patient's age to complete this topic Pneumococcal Vaccine: Pediat rics (0 to 5 Years) and At-Risk Patients (6 to 49 Years) Aged Out No longer eligible b ased on patient's age to complete this topic RSV Immunizations Under 20 Months Aged Out No longer eligible based on patient's age to complete this topic Insurance [employer] [facility] Care Teams Oil Heater Operator Relationship Specialty Start Date End Date None, Provider, PCP - General 04/27/20
--- NOTE | 2024-12-26 07:25 | WPDHPUPDATE1 ---
History and Physical Update Update Date/Time: 12/26/24 07:25 History and Physical has been reviewed, including an updated exam of the patient. There are NO changes in the patient's condition. Risks, benefits, and alternatives have been discussed and questions answered. Patient agrees to proceed with procedure.
--- NOTE | 2024-12-26 07:52 | WPDANESEPPF ---
Anes - Initial Pre Proc Eval Procedure: Operation Date: 12/26/24 09:00 Proposed Procedures p Hysteroscopy Dilation and Curettage with Possible Removal of Any Endometrial Lesions - Fadi Almanza MD Date/Time: 12/26/24 07:52 Surgeon: Fadi Almanza MD Pre Op Diagnosis: Abnormal Bleeding Patient Data Age: 44 Gender: F Height: 1.57 m Weight: 80 kg Allergies Allergy/AdvReac Type Severity Reaction Status Date / Time neomycin Allergy Mild RASH Verified 12/16/24 09:38 bacitracin Allergy Unknown Rash Verified 12/16/24 09:38 polymyxin B Allergy Unknown Rash Verified 12/16/24 09:38 Home Medications ?Medication ?Instructions ?Recorded ?Confirmed ?Type dextroamphetamine-amphetamine 20 20 mg PO BID #60 tabs 12/11/24 12/16/24 Rx mg tablet (Adderall) tirzepatide (weight loss) 15 15 mg subcut WEEKLY 12/11/24 12/16/24 History mg/0.5 mL subcutaneous pen injector (Zepbound) lorazepam 0.5 mg tablet 0.5 mg PO DAILY PRN anxiety #30 12/18/24 Rx tabs Patient hx anesthesia problems: none Family hx anesthesia problems: none Results Review: All pre-operative results and documents have been reviewed as part of the pre-operative evaluation. [facility] Past Medical History Medical History JOE positive Attention-deficit hyperactivity disorder, predominantly inattentive type Surgical History Surgical History [facility] teeth extracted Family History Family History Mother Diabetes mellitus Social History Social History Social History: Single Years smoked: 8 Smoking status: Former smoker Tobacco type: cigarettes Second hand tobacco smoke exposure: No Smoking end date: 08/27/04 Alcohol intake: current Alcohol use details: rarely Substance use: never Substance use type: does not use Do You Feel Safe in your Home?: Yes Lack of Transportation: No Lack of Food: Never True Current Housing: I Have Housing Concerned About Future Housing: No Difficulty Paying Gas/Electric Bills: No Difficulty Paying for Meds: No Currently Unemployed: No Education: Don't Know Difficulty w/ Childcare or Family Care: No Living arrangements: with family Additional living arrangements comments: Boyfriend and his 2 kids Occupation/Education: occupation Gender identity (if verbalized by the patient): Female Sexual Orientation (if Verbalized by the Patient): Straight or Heterosexual Anes - Eval Final PreProcedure Day of Procedure 12/26/24 07:52 Patient weight: obese Heart: regular rate and rhythm Lungs: clear to auscultation Airway: Mallampati scale class II Neurological: alert and oriented Last oral intake: >/= 8 hours ASA classification: II Emergent: no Anesthetic plan: proceed Anesthesia type and monitoring: general GIVS and standard monitoring Results Review: All pre-operative results and documents have been reviewed as part of the pre-operative evaluation. Informed Consent: The patient's anesthetic plan and its attendant risks and benefits were discussed with the patient/family/POA. Questions were solicited and answers provided to the satisfaction of the patient/family/POA.
[2024-12-26 08:45] VITALS: BP 110/76; PULSE 86; RESP 14; TEMP 36.2; O2SAT 99
[2024-12-26] MEDS: LACTATED RINGERS 1,000 ML 30 ML IV CONT ×2 (08:45→10:04)
[2024-12-26] MEDS: ACETAMINOPHEN 500 MG TABLET 1000 MG PO (08:45)
[2024-12-26] MEDS: ceFAZolin 2 GM/D5W 50 ML 2 GM/50 ML BAG IVPB (08:53)
[2024-12-26] MEDS: LIDOCAINE 1% LOCAL INJ 10 ML VIAL INFILTRATE (09:07)
--- NOTE | 2024-12-26 09:21 | P.OP_ITS ---
Procedure Note - Detailed Date of Procedure 12/26/24 Pre-op Diagnosis Abnormal Bleeding. Post-op Diagnosis Same Procedure Performed Hysteroscopy with dilation and curettage and removal of endometrial lesion Surgeon Fadi Almanza MD Anesthesia MAC and Local Indications Irregular bleeding with thickened endometrium. Endometrial sampling recommended she refused office endometrial biopsy, she opted for hysteroscopy and dilation and curettage and removal of lesion if present. Findings Uterus sound to 8 cm, multiple polypoid tissue in the cavity at anterior mid to upper cavity, normal ostia. Proliferative endometrium. Description of Procedure After informed consent was obtained patient was taken to the operating room and adequate IV sedation was administered. Attention was turned to the vagina. Speculum was inserted. Single-tooth tenaculum placed on the anterior lip of the cervix. A total of 10 cc of 1% lidocaine was injected at the cervical vaginal interface at the 2, 5, 8 and 10 position. The uterus was sounded to 8 cm. The cervix was dilated to an 6 Rodriguez dilator. The hysteroscope was inserted into the cavity. The findings were large amount of polyp type tissue and proliferative endom etrium. The [employer] instrument was used and the shavings were used to remove all of the polypoid tissue. After this a curettage was performed. Good cry in all quadrants. The hysteroscope was removed the single-tooth tenaculum was removed hemostasis was noted at the tenaculum site. Sponge count correct. The patient taken to recovery in stable condition. Estimated Blood Loss 5 Drains No Packing No Pathology Yes ( Endometrial shavings and curettage) Complications No immediate complications Condition Stable Disposition Same day [facility] Billing Surgery - Charge Forward: Surgery Billing
[2024-12-26 09:26] VITALS: BP 102/68; PULSE 88; RESP 20; O2SAT 92
[2024-12-26] MEDS: fentaNYL CITRATE INJ (*CRX) 100 MCG/2 ML VIAL 25 MCG IV PUSH ×4 (09:47→10:05)
[2024-12-26 09:55] VITALS: BP 98/60; PULSE 74; O2SAT 99
[2024-12-26 10:25] VITALS: BP 106/76; PULSE 57
[2024-12-26] MEDS: oxyCODONE HCL (*CRX) 5 MG TAB IR PO (10:39)
[2024-12-26] MEDS: KETOROLAC 30 MG/ML VIAL (*BKC) IV PUSH (10:39)
[2024-12-26 10:55] VITALS: BP 119/66; PULSE 63
== END 2024-12-26 11:18 | disposition home or self-care (01) ==
PROVIDERS: PCP Family Medicine; Visit Provider Obstetrics & Gynecology
PROC: 0U5B8ZZ Destruction of Endometrium, Via Natural or Artificial Opening Endoscopic (ICD-10-PCS; CPT 58563; principal; 2024-12-26 09:00)
DX: C54.1 Malignant neoplasm of endometrium (principal); Z87.891 Personal history of nicotine dependence; E66.9 Obesity, unspecified; Z68.32 Body mass index [BMI] 32.0-32.9, adult
CPT/HCPCS: 58558; 88305; 88342; A9270; J0690; J1885; J2003; J2250; J2704; J3010; J7120

== ENCOUNTER 2025-07-02 11:08 | Outpatient (CLI) | payer OTHER, SELFPAY ==
--- NOTE | ~2025-07-02 | XR_ITS ---
EXAMINATION: XR sternum min 2V, 07/02/2025 11:50 DIRECTOR OF OPERATIONS HISTORY: M89.8X8 - Other specified disorders of bone, other site COMPARISON: No comparisons available. Findings: No acute fracture or malalignment. No significant degenerative changes. Soft tissues unremarkable. Impression: No acute fracture or malalignment. Reviewed, dictated and finalized at location P. CTOR OF OPERATIONS Impression: No acute fracture or malalignment.
== END 2025-07-02 11:09 | disposition home or self-care (01) ==
LOC: MICIMG 11:10
PROVIDERS: PCP Physician Assistant; Visit Provider Physician Assistant
DX: M89.8X8 Other specified disorders of bone, other site (principal)
CPT/HCPCS: 71120